=== PATIENT | male | born 1970 | race African-American/Black ===

== ENCOUNTER 2017-04-02 02:35 | Emergency (ER) | payer MEDICAID ==
[2017-04-02] MEDS ORDERED: Sodium Chloride 0.9% 1,000 ML IV ONE (03:03)
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
== END 2017-04-02 03:30 | disposition left against medical advice (07) ==
LOC: ER 02:35
DX: R42 Dizziness and giddiness (principal); F17.200 Nicotine dependence, unspecified, uncomplicated; F31.9 Bipolar disorder, unspecified; Z91.041 Radiographic dye allergy status
CPT/HCPCS: Z7502